=== PATIENT | female | born 1995 | race African-American/Black ===

== ENCOUNTER 2021-01-29 15:11 | Emergency (ER) | payer MEDICAID ==
[~2021-01-29] VITALS: Ht 154.9 cm; Wt 68.0 kg
[2021-01-29] MEDS ORDERED: AMOX-494 MT (18:41)
[2021-01-29 19:26] VITALS: BP 110/68
== END 2021-01-29 19:27 | disposition home or self-care (01) ==
LOC: ER 15:11
DX: K08.89 Other specified disorders of teeth and supporting structures (principal); Z88.3 Allergy status to other anti-infective agents; Z98.890 Other specified postprocedural states
CPT/HCPCS: 99281